=== PATIENT | female | born 1990 ===

== ENCOUNTER 2023-04-25 11:05 | Outpatient (CLI) | payer SELFPAY ==
--- NOTE | 2023-04-25 20:34 | Ultrasound Report ---
PROCEDURE: Head or Neck Soft Tissue INDICATIONS: CERVICAL LYMPHADENTIS TECHNIQUE: Real-time scanning was performed of the neck. COMPARISON: None FINDINGS: Compo Caster nodules were evaluated with ultrasound. All palpable areas of concern corresponds with a normal-appearing cervical lymph nodes which measure less than 1 cm in short axis, preserved fatty hilum and appropriate vascularity. IMPRESSION: Normal cervical lymph nodes. No evidence of adenopathy. If clinical concern persists, consider furthe r evaluation with contrast CT neck Reviewed by: Pramod Kincaid MD on 04/25/2023 7:32 PM [facility] Approved by: Pramod Kincaid MD on 04/25/2023 7:32 PM [facility] Station ID: [id number]
== END 2023-04-25 11:06 | disposition home or self-care (01) ==
LOC: DI 11:05
PROVIDERS: ATTEND Registered Nurse
DX: L04.8 Acute lymphadenitis of other sites (principal)

== ENCOUNTER 2023-06-30 09:28 | Outpatient (CLI) | payer OTHER ==
--- NOTE | 2023-06-30 16:01 | CT Report ---
PROCEDURE: SINUS SCREENING WO INDICATIONS: SINUSITIS TECHNIQUE: Noncontrast 3.0 mm axial images acquired from the frontal sinuses to the mid-sella, with coronal and sagittal reformats. For radiation dose reduction, the following was used: automated exposure control , adjustment of mA and/or kV according to patient size. COMPARISON: None. FINDINGS: Image quality: Excellent. Maxillary Sinuses: No bony remodeling or destruction. Mild mucosal thickening can be seen within the inferior maxillary sinuses. Ethmoid Air Cells: No bony remodeling or destruction. Sinuses are yusra r. Sphenoid Sinuses: No bony remodeling or destruction. Sinuses are clear. Frontal Sinuses: No bony remodeling or destruction. Sinuses are clear. Ostiomeatal Complexes: The ostiomeatal complexes are patent, yet they are constitutionally narrowed, with bilateral Kd cells. Miscellaneous: Visualized intra-orbital contents are normal. No los bull[place]. There is mild lef tward nasal septal deviation. IMPRESSION: Mild mucosal thickening is seen within the inferior maxillary sinuses. The ostiomeatal complexes are patent, yet they are constitutionally narrowed, with bilateral Kd c ells. Mild leftward nasal septal deviation noted. Reviewed by: Mike Malone MD on 06/30/2023 2:59 PM [place] Approved by: Mike Malone MD on 06/30/2023 2:59 PM [facility] Station ID: [id number]
== END 2023-06-30 09:29 | disposition home or self-care (01) ==
LOC: DI 09:28
PROVIDERS: ATTEND Student in an Organized Health Care Education/Training Program
DX: J32.0 Chronic maxillary sinusitis (principal); J34.2 Deviated nasal septum